=== PATIENT | male | born 1985 | race Caucasian/White ===

== ENCOUNTER → 2024-11-15 07:52 | Outpatient (REF) | payer OTHER, SELFPAY | LOC: RAD 07:52 | PROVIDERS: ATTENDING PHYSICIAN Nurse Practitioner Adult Health | DX: R79.89 Other specified abnormal findings of blood chemistry (principal); E78.2 Mixed hyperlipidemia; R74.8 Abnormal levels of other serum enzymes | CPT/HCPCS: 76700 ==